=== PATIENT | male | born 1990 | race Caucasian/White ===

== ENCOUNTER → 2019-04-12 | Outpatient (CLI) | payer BC | LOC: MRI 08:25 | DX: M54.2 Cervicalgia (principal); M54.6 Pain in thoracic spine; F95.9 Tic disorder, unspecified ==

== ENCOUNTER → 2020-03-07 | Outpatient (CLI) | payer BC | LOC: CAT 10:36 | DX: R55 Syncope and collapse (principal) ==

== ENCOUNTER 2020-09-15 12:06 | Emergency (ER) | payer BC ==
[~2020-09-15] VITALS: Ht 182.9 cm; Wt 122.5 kg
[2020-09-15 13:15] LABS: ABSOLUTE NEUTROPHILS 5.6 thou/uL (1.4-8.2); BASOPHILS 0.6 % (0.0-2.0); EOSINOPHILS 1.9 % (0.0-3.0); HEMATOCRIT 44.4 % (42.0-52.0); HEMOGLOBIN 14.7 gm/dL (14.0-18.0); LYMPHOCYTES 26.6 % (24.0-44.0); MCH 29.1 pg (26.0-34.0); MCHC 33.2 g/dL (28.0-37.0); MCV 87.6 fL (80.0-100.0); MONOCYTES 7.5 % (1.0-8.0); PLATELET COUNT 276 thou/uL (150-400); POLYS 63.4 % (36.0-66.0); RBC 5.06 mil/uL (4.50-6.00); RDW 13.1 % (10.5-14.5); WBC 8.9 thou/uL (4.0-11.0)
[2020-09-15 13:26] LABS: ANION GAP 11 mmol/L (7-16); BUN 12 mg/dL (7-18); CALCIUM 9.1 mg/dL (8.5-10.1); CHLORIDE 104 mmol/L (98-107); CO2 25 mmol/L (21-32); CREATININE 0.9 mg/dL (0.7-1.3); GLUCOSE 112 mg/dL (74-106); POTASSIUM 3.7 mmol/L (3.5-5.1); SODIUM 140 mmol/L (136-145)
[2020-09-15 13:36] LABS: ALBUMIN 3.8 g/dL (3.4-5.0); MAGNESIUM 2.1 mg/dL (1.8-2.4); SGOT 22 U/L (15-37); SGPT 43 U/L (30-65); TOTAL BILIRUBIN 0.2 mg/dL (0.2-1.0); TOTAL PROTEIN 7.2 g/dL (6.4-8.2); TROPONIN-I <0.06 ng/mL (<0.06)
[2020-09-15 15:15] VITALS: BP 131/82
[2020-09-15] MEDS ORDERED: MECLIZINE HCL25 MG PO (15:24)
--- NOTE | 2020-09-15 15:58 | EKG ---
[facility] [address] [place] [address] ELECTROCARDIOGRAM REPORT Name: JOSELIN HENRIQUEZ Room #: DEP MARKY Francis#: [id number] Admission: 09/15/20 Attend Phys: Discharge: 09/15/20 Date of : 88 Report #: [id number] <ELECTRONICALLY SIGNED> By: Ramesh Iglesias MD, FACC 09/15/20 1558 [id number] Ramesh Iglesias MD, FACC /EPI
== END 2020-09-15 15:20 | disposition home or self-care (01) ==
LOC: ER 12:06
PROVIDERS: Physician Assistant
DX: R42 Dizziness and giddiness (principal); R51.9 Headache, unspecified; M54.2 Cervicalgia; M54.6 Pain in thoracic spine; M25.512 Pain in left shoulder; Z88.0 Allergy status to penicillin; Z91.013 Allergy to seafood; Z88.2 Allergy status to sulfonamides; W18.39XA Other fall on same level, initial encounter; Y93.K1 Activity, walking an animal; Y92.098 Other place in other non-institutional residence as the place of occurrence of the external cause; Y99.8 Other external cause status

== ENCOUNTER → 2020-10-19 | Outpatient (CLI) | payer BC ==
[~2020-10-19] MED LIST: MECLIZINE HCL25 MG PO
== END ==
LOC: SJCVCIMAG 09:21
PROVIDERS: ATTEND Internal Medicine
DX: R55 Syncope and collapse (principal); Z87.891 Personal history of nicotine dependence